=== PATIENT | male | born 1975 ===

== ENCOUNTER 2017-12-10 09:16 | Emergency (ER) | payer BC ==
[2017-12-10 09:36] VITALS: BP 122/88
--- NOTE | 2017-12-10 10:13 | ED ---
Skin Complaint - HPI Summary HPI Summary: 42 yo WM c/o right upper arm insect bite that he thinks is becoming infected, now more itchy, red and inflamed - History of Current Complaint Chief Complaint: UCSkin Time Seen by Provider: 12/10/17 09:53 Stated Complaint: SKIN COMPLAINT Hx Obtained From: Patient Hx From Patient Unobtainable Due To: Dementia Timing: Constant Onset Severity: Moderate Current Severity: Moderate Pain Intensity: 0 - Allergy/Home Medications Allergies/Adverse Reactions: Allergies Allergy/AdvReac Type Severity Reaction Status Date / Time amoxicillin Allergy Rash Verified 12/10/17 09:31 PMH/Surg Hx/FS Hx/Imm Hx Previously Healthy: Yes Infectious Disease History: No Infectious Disease History: Reports: Traveled Outside the [place] in Last 30 Days - [place] - Social History Alcohol Use: Daily Alcohol Amount: 2-3 Drinks Substance Use Type: Reports: None Smoking Status (MU): Never Smoked Tobacco Review of Systems Constitutional: Negative Eyes: Negative ENT: Negative Cardiovascular: Negative Respiratory: Negative Gastrointestinal: Negative Genitourinary: Negative Skin: Other - see HPI All Other Systems Reviewed And Are Negative: Yes Physical Exam Triage Information Reviewed: Yes Vital Signs On Initial Exam: Initial Vitals Temp Pulse Resp BP Pulse Ox 36.3 C 55 18 122/88 100 12/10/17 09:32 12/10/17 09:32 12/10/17 09:32 12/10/17 09:32 12/10/17 09:32 Vital Signs Reviewed: Yes Appearance: Positive: Well-Appearing Skin: Positive: Warm, Other - infected insect bite mildly honey crusted on underside of right upper arm and on side of neck Head/Face: Positive: Normal Head/Face Inspection Eyes: Positive: Normal ENT: Positive: Normal ENT inspection Neck: Positive: Supple Respiratory/Lung Sounds: Positive: Clear to Auscultation Cardiovascular: Positive: Normal Musculoskeletal: Positive: Normal Neurological: Positive: Normal Psychiatric: Positive: Normal Diagnostics - Vital Signs Vital Signs Temp Pulse Resp BP Pulse Ox 12/10/17 09:32 36.3 C 55 18 122/88 100 - Laboratory Lab Statement: Any lab studies that have been ordered have been reviewed, and results considered in the medical decision making process. Course/Dx - Diagnoses Provider Diagnoses: Infected insect bite Discharge - Sign-Out/Discharge Documenting (check all that apply): Discharge/Admit/Transfer - Discharge Plan Condition: Stable Disposition: HOME Prescriptions: Betamethasone Sandy 0.1% CRM(NF) [Valisone 0.1% CM(NF)] 1 applic TOPICAL BID 7 Days #1 tube Mupirocin 2% CREAM* [Bactroban 2% CREAM*] 1 applic TOPICAL TID 7 Days #1 tube Patient Education Materials: Impetigo (ED) Referrals: No Primary Care Phys,NOPCP [Primary Care Provider] - Additional Instructions: follow up with dermatology if symptoms persist - Billing Disposition and Condition Condition: STABLE Disposition: HOME
== END 2017-12-10 10:11 | disposition home or self-care (01) ==
LOC: UCEAST 09:16
DX: S40.861A Insect bite (nonvenomous) of right upper arm, initial encounter (principal); L08.9 Local infection of the skin and subcutaneous tissue, unspecified; W57.XXXA Bitten or stung by nonvenomous insect and other nonvenomous arthropods, initial encounter; Y93.9 Activity, unspecified; Y92.9 Unspecified place or not applicable; Z88.0 Allergy status to penicillin
CPT/HCPCS: 99202; G0463